=== PATIENT | male | born 1945 | race Caucasian/White ===

== ENCOUNTER → 2018-02-09 | Outpatient (CLI) | payer MEDICARE, OTHER ==
[~2018-02-09] MED LIST: ASPIRIN81 M2 PO; CYMBALTA60 MG PO; DIOVAN80 MG PO; K-PHOS NEUTRAL250 M1 PO; LIDEX 0.05% GEL15 GM TP; LOTRISONE15 GM TP; MOBIC7.5 MG PO; OCUVITE TABLET1 EACH PO; PERCOCET 5/31 TABLET PO; REQUIP0.25 MG PO; VALIUM2 MG PO; VIAGRA100 MG PO; XARELTO10 MG PO; XARELTO20 MG PO
== END | disposition home or self-care (01) ==
LOC: CDC 11:22
DX: Z01.810 Encounter for preprocedural cardiovascular examination (principal); Z95.0 Presence of cardiac pacemaker
CPT/HCPCS: 93000